=== PATIENT | female | born 1985 ===

== ENCOUNTER → 2022-03-20 | Outpatient (CLI) | payer OTHER | END | disposition home or self-care (01) | LOC: MAMO-SONO 08:35 | DX: Z12.31 Encounter for screening mammogram for malignant neoplasm of breast (principal); N83.00 Follicular cyst of ovary, unspecified side; N92.0 Excessive and frequent menstruation with regular cycle; Z80.3 Family history of malignant neoplasm of breast; N94.6 Dysmenorrhea, unspecified ==